=== PATIENT | male | born 1965 | race African-American/Black ===

== ENCOUNTER 2023-01-13 09:06 | Emergency (ER) | payer OTHER, SELFPAY ==
[2023-01-13 09:11] VITALS: BP 125/81; PULSE 78; RESP 16; TEMP 36.6; O2SAT 97; BMI 32.2
--- NOTE | 2023-01-13 09:16 | ED_ITS ---
HPI - Extremity Problem General Chief complaint: Extremity Problem Stated complaint: [facility] Time Seen by Provider: 01/13/23 09:15 Source: patient, RN notes reviewed and old records reviewed Mode of arrival: ambulatory History of Present Illness HPI Narrative: 57-year-old male with past medical history of chronic hip pain presenting to the ED complaining of acute on chronic right-sided hip pain x 15 years worsening today. Admits had MRI few months ago was told his right leg is shorter than his left, [facility] states not happy with his care at the [facility] and would like different referral. denies more recent injury/trauma or fall, numbness, tingling, weakness. Admits to taking anti-inflammatories without relief MD Complaint: extremity pain Related Data Previous Rx's Medication Instructions Recorded acetaminophen 500 mg tablet 500 mg PO Q6H PRN fever or pain 01/13/23 (Tylenol Extra Strength) #14 tabs cyclobenzaprine 5 mg tablet 5 mg PO Q8H PRN pain (scale score 01/13/23 7-10) 5 days #14 tabs ketorolac 10 mg tablet 10 mg PO TID PRN pain 5 days #15 01/13/23 tabs lidocaine 5 % topical patch 1 patch topical DAILY PRN pain #30 01/13/23 (Lidoderm) ea Allergies Allergy/AdvReac Type Severity Reaction Status Date / Time No Known Allergies Allergy Verified 01/13/23 09:10 [No Known Allergies*] Review of Systems Review of Systems: Constitutional: No Fever, No Chills ENT/Mouth: No Ear Pain, No Nasal Congestion, No sore throat, No Rhinorrhea, No Swallowing Difficulty Cardiovascular: No Chest Pain, No SOB Respiratory: No Cough, No Sputum, No Wheezing Gastrointestinal: No Nausea, No Vomiting, No Diarrhea, No Constipation, No Abdominal pain Genitourinary: No Dysuria, No Urinary Incontinence/retention, No Urgency, No Flank Pain Musculoskeletal: +joint pain, No Myalgias, No Joint Swelling Skin: No Skin Lesions, No rash Neuro: No Weakness, No Numbness, No Paresthesias Yes all other systems are reviewed and are negative Constitutional: Constitutional: Reports as per [facility] Past Medical History Attestation statement: The following information was validated with the patient. Source: old records reviewed Social History Social History Advance Directives: No Advance Directives Information Provided: No Physical Exam Vital Signs: Vital Signs: Last Vital Signs Temp 97.8 F 01/13/23 09:11 Pulse 78 01/13/23 09:11 Resp 16 01/13/23 09:11 BP 125/81 01/13/23 09:11 Pulse Ox 97 01/13/23 09:11 O2 Del Method Room Air 01/13/23 09:11 BMI result Body Mass Index 32.2 Const: General: cooperative, healthy appearing and no acute distress Orientation/consciousness: patient oriented x3 Limitations: no limitations HEENT: Head: Yes normal to inspection and Yes atraumatic Ears: hearing grossly normal bilaterally General nose exam: Normal external nose present Face and sinus: Yes normal facial exam Eyes: General: appearance normal, both eyes and all related structures EOM: EOMs intact bilaterally Neck: Neck: Yes normal visual inspection and Yes no meningeal signs Resp: Effort & Inspection: normal respiratory effort and no respiratory distress Cardio: Rate: regular rate Heart sounds: S1 normal heart sound present and S2 normal heart sound present Peripheral pulses: Peripheral pulses 2+ throughout GI: Inspection: Yes normal to inspection Palpation (GI): Soft to palpation, nontender, no guarding and not rigid : General: Yes no CVA tenderness Back/Spine/Pelvis: Other: No midline cervical/thoracic/lumbar spinous tenderness/step-off or deformity Back: no CVA tenderness Skin: Rashes: no rashes Wounds: no wounds Neuro: General: patient oriented x3, tone normal and no meningeal signs Cranial nerves: Yes CN's II-XII intact bilaterally Gait exam (Neuro): Normal gait present Extrem: Other: Right hip without noted deformity/erythema, warmth or rash. Diffusely tender to palpation. ROM intact with discomfort. Neurovascular intact distally. Compartments soft. General: Yes normal to inspection Medical Decision Making Medical Decision Making MDM Narrative: 57-year-old male with past medical history of chronic hip pain presenting to the ED complaining of acute on chronic right-sided hip pain x 15 years worsening today. On exam vital signs stable, NAD, nontoxic appearing, physical exam as noted above. Concern for osteoarthritis vs MSK pain/strain vs tendinopathy. Low suspicion for fracture, septic joint/arthritis, cauda equina, compartment syndrome Pain control, Orthopedic follow-up Please refer to course for remaining clinical decision making, interpretation of labs/imaging results, and discussions with consultants and/or family members. Differential Diagnosis Differential Diagnoses: The differential diagnosis associated with the presentation includes As above Radiology Impression Discussion of test interpretation with radiology: I have reviewed the radiologist's reading. External Record Review External record reviewed: Inpatient record, Office record, Outpatient record, Prior outpatient labs, Prior outpatient radiology, Primary care record and Outside ED record Tests considered The following testing was considered but not selected: As above Prescription Management I considered prescription management with: Pain Medication Chronic Conditions Patient?s care impacted by: Other Discharge Plan Discharge Clinical Impression: Chronic hip pain Patient Disposition: Home, Self-Care Instructions: Hip Pain (ED) Additional Instructions: Please with orthopedics Flexeril is a muscle relaxer, take at night as it makes you drowsy, do not drive, drink alcohol, or operate machinery while taking it Ketorolac as an anti-inflammatory / pain medication, take with food Lidoderm patches are numbing patches, apply to painful area In addition take Tylenol at home If symptoms persist or worsen, pain becomes unbearable, you developed urinary retention or incontinence, or weakness return to the ED Prescriptions: New acetaminophen [Tylenol Extra Strength] 500 mg tablet 500 mg PO Q6H PRN (Reason: fever or pain) Qty: 14 0RF ketorolac 10 mg tablet 10 mg PO TID PRN (Reason: pain) 5 Days Qty: 15 0RF lidocaine [Lidoderm] 5 % adhesive patch,medicated 1 patch topical DAILY MDD remove after 12 hours PRN (Reason: pain) Qty: 30 0RF Rx Instructions: leave on most painful area for up to 12 hrs cyclobenzaprine 5 mg tablet 5 mg PO Q8H PRN (Reason: pain (scale score 7-10)) 5 Days Qty: 14 0RF Referrals: [facility] [place] [facility] Surgeons [Provider Group]
[2023-01-13] MEDS: Ketorolac Tromethamine 30 MG/ML VIAL IM (09:35)
[2023-01-13] MEDS: Lidocaine 4 % Patch ADH..PATCH 1 PATCH TRANSDERMA (09:37)
== END 2023-01-13 09:42 | disposition home or self-care (01) ==
PROVIDERS: Emergency Provider Emergency Medicine; PCP Internal Medicine
DX: M25.551 Pain in right hip (principal); Z79.899 Other long term (current) drug therapy
CPT/HCPCS: 96372; 99283; 99284; J1885

== ENCOUNTER 2023-01-29 11:16 | Outpatient (REF) | payer OTHER, SELFPAY ==
--- NOTE | ~2023-01-29 | XR_ITS ---
EXAMINATION: XR LUMBOSACRAL SPINE CLINICAL INFORMATION: Radiculopathy, lumbar region COMPARISON: None available. TECHNIQUE: Three views of the lumbosacral spine. FINDINGS: No acute lumbar compression fractures seen. Anterolisthesis noted L4-5. Slight degenerative disc space narrowing seen eccentrically at L4-5. There are minimal endplate spondylitic changes. Multilevel facet arthrosis noted. Degenerative changes noted at the SI joints. XR/XR lumbar spine 2-3V IMPRESSION: 1. No acute compression fracture. Anterolisthesis L4-5. 2. Slight degenerative disc space narrowing L4-5. 3. Facet arthrosis.
== END 2023-01-29 11:17 | disposition home or self-care (01) ==
LOC: HO.HOSX 11:16
PROVIDERS: PCP Internal Medicine; Visit Provider Physical Medicine & Rehabilitation
DX: M70.61 Trochanteric bursitis, right hip (principal); M54.16 Radiculopathy, lumbar region; Z79.899 Other long term (current) drug therapy
CPT/HCPCS: 72100

== ENCOUNTER 2023-01-29 11:16 | Outpatient (AMB) | payer OTHER, SELFPAY ==
--- NOTE | 2023-01-29 11:17 | A.OFFVIS_ITS ---
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 Patient reports ongoing pain for 20 years and its been getting worse over time. He states that lidocaine patches are not relieving his pain. Patient states that his pain is worse at night when laying down. His pain is near the glutes area and it moves down to behind his knee. 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 No fracture that he knew about. Did 28 jumps after. Denies any other injury. Gradually worsening now. 2 months ago [facility], told to have right leg shorter but was not told any other results; 2 years told to have bone deterioration and bruising.N Right lateral hip pain, wears 3 lidoderms patches, going down to lateral thigh. Some pain on right calf. No groin. Some back pain. He reports numbness on both calves, chronic, right worse left. No numbness on toes. Right knee buckling, leg gives out. No bladder/bowel issues. Treatment done so far: NSAIDs - ibuprofen therapy - never went injection - none yet surgery - none [facility] Medical History (Updated 01/29/23 @ 11:56 by Sybil Boss MD) Trochanteric bursitis of right hip Social History (Updated 01/29/23 @ 11:24 by Coral Peterson) Alcohol intake: current Patient Tobacco Use Status: Current everyday Tobacco user Review of Systems Const All systems reviewed & are unremarkable except as noted in HPI and below Physical Exam Vital Signs: BMI result Body Mass Index 32.2 Constitutional: Patient appears to be in no acute distress, well nourished and well developed. Patient was appropriately conversant and oriented. Good historian. MSK: No specific abnormalities found on inspection of the spine and all extremities. No pain with palpation over the lumbar area. No tenderness in SI joint. Tender on right GT and piriformis. Mildly tender along the ITB band. Lumbar ROM was full. Straight-leg raising test negative. FABERE test positive right hip. No footdrop. No calf tenderness. Strength is 5/5 in all muscle groups tested. No increased tone noted. Neurological: Neurologic examination of the upper and lower extremities was nonfocal with intact sensation, muscle stretch reflexes and without focal motor deficits . Ocampo?s negative bilaterally. Babinski was down going bilaterally. Clonus was negative. Gait is antalgic without loss of balance. Results Reviewed Results Reviewed: Lumbar x-ray done in the office. I independently reviewed the results of the following: Decreased disc space between L4-5 and L5-S1, possible mild spondylolisthesis L4- 5. MRI right knee 10/13/2022 report obtained from [facility]: Focal inner margin fraying of the medial meniscal body, minimal inner margin fraying of the lateral meniscal body. Mucoid degeneration of the ACL without measurable tear. Possible grade 1 sprain/partial tear of the MCL. Distal quadriceps tendinosis with partial tearing. Mild patellofemoral and medial compartment osteoarthritis. Possible mild strain of medial gastrocnemius muscle. I reviewed records from the following: Recent ER visit for right hip, given ketorolac injection, NSAIDs and Flexeril and Lidoderm patch Assessment & Plan Assessment & Plan (1) Trochanteric bursitis of right hip: Code(s): M70.61 - Trochanteric bursitis, right hip Plan: Pain is in the lateral hip, no groin pain, which is suggestive of trochanteric bursitis. There is some tenderness over iliotibial band. (2) Lumbar radiculitis: Code(s): M54.16 - Radiculopathy, lumbar region Plan: There is also concern for right-sided lumbar radiculopathy given history of being in the /injuries and complaints of numbness and calf. Plan Right lateral hip pain could be trochanteric bursitis. We could trial steroid injection. We will schedule for next week. We will look for recent imaging done at the [facility] for right hip. Concern for lumbar radiculitis. X-ray done, see above. We may at some point need a lumbar MRI if continues to have leg/calf numbness. Continue with Lidoderm patches. Assessment and plan discussed with patent, and patient was agreeable. All questions were answered thoroughly. Orders: Orders XR lumbar spine 2-3V Today M54.16 - Radiculopathy, lumbar region Coding Level of Care Code New Pt Level 4 (40544) Diagnoses Trochanteric bursitis of right hip M70.61 Lumbar radiculitis M54.16
[2023-01-29 11:24] VITALS: BMI 32.2
== END 2023-01-29 12:15 | disposition home or self-care (01) ==
PROVIDERS: PCP Internal Medicine; Visit Provider Physical Medicine & Rehabilitation
DX: M70.61 Trochanteric bursitis, right hip (principal); M54.16 Radiculopathy, lumbar region
CPT/HCPCS: 99204

== ENCOUNTER 2023-02-05 09:05 | Outpatient (AMB) | payer OTHER, SELFPAY ==
--- NOTE | 2023-02-05 09:12 | MHC.OFFVIS ---
Intake Intake Visit Reasons: ov- right Chronic hip pain injection Intake Note: This is a 57 year old male who presents for chronic right hip pain. He reports injury while he was in the in the . He has not had any surgical intervention for his hip. He has never had any injections. He does not take any OTC meds, and states ice and heat does not help. Allergies No Known Allergies [No Known Allergies*] Allergy (Verified 02/05/23 09:16) Medication List - Last Reconciled 02/05/23 by Veronica Chris RN acetaminophen (Tylenol Extra Strength) 500 mg PO Q6H PRN cyclobenzaprine 5 mg PO Q8H PRN 5 days lidocaine 5% (Lidoderm) 1 patch topical DAILY PRN MDD remove after 12 hours naproxen 500 mg PO BID PRN 10 days PFSH Medical History (Updated 01/29/23 @ 11:56 by Sybil Boss MD) Trochanteric bursitis of right hip Social History (Updated 01/29/23 @ 11:24 by Coral Peterson) Alcohol intake: current Patient Tobacco Use Status: Current everyday Tobacco user Office Procedures Joint Injection/Drain Joint Injection/Drain Details: Right greater trochanteric injection Consent obtained. Patient lies on unaffected side with knees flexed. Tender area over the greater trochanter is identified and marked. Area is cleansed with betadine solution. Using a [27] gauge needle, [3 ml] of [2 %] lidocaine is injected, with the needle perpendicular to center of tender area. Then, using a spinal needle, [40 mg] Kenalog is injected perpendicularly at center of tender area and slightly touching bone of greater trochanter. Patient tolerated procedure well without complications. Injected: 40 mg of, Kenalog, with 3 mL of and other (2% lidocaine) Coding 02947 - Large joint Procedure code (CPT) selection complete Results Reviewed Results Reviewed: 02/05/23 09:21 Lidocaine HCl 2 % MPF [Xylocaine 2 % MPF] 5 ml .ROUTE .STK-MED ONE Triamcinolone Acetonide [Kenalog-40] 40 mg .ROUTE .STK-MED ONE Assessment & Plan Assessment & Plan (1) Trochanteric bursitis of right hip: Code(s): M70.61 - Trochanteric bursitis, right hip (2) Lumbar radiculitis: Code(s): M54.16 - Radiculopathy, lumbar region Plan Hopefully right hip pain will improve with this injection. [facility] Discussed that lumbar x-ray showed spondylosis. If back pain/hip pain does not get better, we would need to further evaluate lumbar spine. Follow-up in 3 months. Assessment and plan discussed with patient, and patient was agreeable. All questions were answered thoroughly. Sybil Boss MD, AFSHAN Board Certified, [place] [employer] and [employer] (ABPMR) Board Certified, [place] [employer] Electro[employer] (ABEM) Orders: Orders AMB Joint Injection/Aspiration Today M70.61 - Trochanteric bursitis, right hip Coding Level of Care Code Procedure Only Diagnoses Trochanteric bursitis of right hip M70.61 Lumbar radiculitis M54.16 CPT Codes Coding - 24788 Large joint: 07894 - Large joint ([id number])
== END 2023-02-05 09:39 | disposition home or self-care (01) ==
PROVIDERS: PCP Internal Medicine; Visit Provider Physical Medicine & Rehabilitation
DX: M70.61 Trochanteric bursitis, right hip (principal); M54.16 Radiculopathy, lumbar region
CPT/HCPCS: 20610

== ENCOUNTER → 2023-02-05 09:05 | Outpatient (BNVA) | payer OTHER, SELFPAY | PROVIDERS: PCP Internal Medicine; Visit Provider Physical Medicine & Rehabilitation | DX: M70.61 Trochanteric bursitis, right hip (principal); M54.16 Radiculopathy, lumbar region | CPT/HCPCS: 20610; J3301 ==

== ENCOUNTER 2023-10-13 08:36 | Emergency (ER) | payer OTHER, SELFPAY ==
[2023-10-13] VITALS (14 sets, daily range): BP systolic 140–189; BP diastolic 81–101; PULSE 57–73; RESP 17–20; TEMP 36.3–37.2; O2SAT 96–100; BMI 31.1
--- NOTE | ~2023-10-13 | XR_ITS ---
EXAMINATION: XR CHEST CLINICAL INFORMATION: Chest pain COMPARISON: None available. TECHNIQUE: Frontal view of the chest was obtained. FINDINGS: No significant abnormality is noted involving the heart, lungs, mediastinum, bony thorax or soft tissues. XR/XR chest 1V IMPRESSION: Unremarkable examination.
--- NOTE | 2023-10-13 08:37 | ECG_ITS ---
Test Reason : chest pain Blood Pressure : / mmHG Vent. Rate : 065 BPM Atrial Rate : 065 BPM P-R Int : 144 ms QRS Dur : 092 ms QT Int : 420 ms P-R-T Axes : 071 066 057 degrees QTc Int : 436 ms Normal sinus rhythm Possible Left atrial enlargement Minimal voltage criteria for LVH, may be normal variant ( Sokolow-Merritt ) Nonspecific T wave abnormality Abnormal ECG No previous ECGs available Referred By: Generic ED Physician Electronically Signed By:Anuel Bonds
[2023-10-13 08:51] LABS: MANUAL DIFF FLAG NO
[2023-10-13 08:52] LABS: Basophils Absolute Auto 0.1 X10*3/uL (0.0-0.2); Basophils Percent Auto 0.5 % (0-2); Eosinophils Percent Auto 0.1 % (0-4); Hematocrit 46.3 % (42.0-52.0); Hemoglobin 15.8 g/dl (14.0-18.0); Imm Gran Abs Auto 0.04 X10*3/uL (0.00-0.03); Imm Gran Pct Auto 0.4 % (0.0-0.4); Lymphocytes Absolute Auto 1.4 X10*3/uL (1.2-4.9); Lymphocytes Percent Auto 13.2 % (20-40); Mean Corpuscular HGB Conc 34.1 g/dl (31.0-36.0); Mean Corpuscular Hemoglobin 28.5 pg (27.0-33.0); Mean Corpuscular Volume 83.6 fL (80.0-98.0); Mean Platelet Volume 9.5 fL (9.4-12.4); Monocytes Absolute Auto 0.5 X10*3/uL (0.1-1.2); Monocytes Percent Auto 4.8 % (2-11); Neutrophils Absolute Auto 8.4 x10*3/uL (2.0-8.3); Platelet Count 224 X10*3/uL (160-400); Red Blood Count 5.54 X10*6/uL (4.60-5.80); Red Cell Distribution Width 13.4 % (11.0-16.0); White Blood Count 10.4 X10*3/uL (4.8-10.8)
[2023-10-13 09:05] LABS: Alanine Aminotransferase 28 U/L (0-40); Albumin Level 4.2 g/dL (3.5-5.0); Alkaline Phosphatase 64 U/L (39-117); Anion Gap 13 (12-20); Aspartate Amino Transferase 26 U/L (5-37); Bilirubin Total 0.7 mg/dL (0.0-1.0); Blood Urea Nitrogen 15 mg/dL (9-16); Calcium 9.8 mg/dL (8.4-10.2); Carbon Dioxide 25 mmol/L (22-29); Chloride 106 mmol/L (96-108); Estimated Glomerular Filt Rate > 60; Glucose Random 136 mg/dL (60-115); Sodium 140 mmol/L (135-145); Total Protein 7.3 g/dL (6.5-8.0)
[2023-10-13 09:14] LABS: Troponin-I High Sensitivity 100.9 ng/L (<3.5-35.0)
--- NOTE | 2023-10-13 09:15 | ED_ITS ---
HPI - Chest Pain General Chief Complaint: Chest Pain Stated Complaint: chest pain Time Seen by Provider: 10/13/23 09:15 Source: patient Mode of arrival: ambulatory Limitations: no limitations History of Present Illness ED Provider: TIMMY MCINTOSH narrative: 58 yo male with no PMH but he does not go to the PCP regularly he has used cocaine in the past but denies recent use - he admits to smoking THC with someone last night and the THC was off the streets he felt funny afterwards. He woke up at 5am drenched in sweat with diffuse chest pressure, nausea and dyspnea. He is feeling better now but still has pressure. He took 4 baby aspirin prior to arrival. He has no known heart disease. MD complaint: chest pain Onset (ago): hour(s) (5am today) Timing of current episode: constant Prior episodes: No Onset: during rest Pain location: substernal Pain radiation: none Severity: moderate Quality: other (pressure) Relieving factors: nothing Exacerbating factors: movement Context: other (possibly associated with THC use) Associated symptoms: nausea and dyspnea Treatment prior to arrival: aspirin (324mg) Related Data Previous Rx's ?Medication ?Instructions ?Recorded acetaminophen 500 mg tablet 500 mg PO Q6H PRN fever or pain 01/13/23 (Tylenol Extra Strength) #14 tabs cyclobenzaprine 5 mg tablet 5 mg PO Q8H PRN pain (scale score 01/13/23 7-10) 5 days #14 tabs lidocaine 5 % topical patch 1 patch topical DAILY PRN pain #30 01/13/23 (Lidoderm) ea naproxen 500 mg tablet 500 mg PO BID PRN pain 10 days #20 01/13/23 tabs Allergies Allergy/AdvReac Type Severity Reaction Status Date / Time No Known Allergies Allergy Verified 10/13/23 09:11 [No Known Allergies*] Review of Systems 2 Review of Systems: Constitutional : No Weight loss, No Fever, No Chills ENT/Mouth : No sore throat, No Rhinorrhea Eyes: No Eye Pain, No Swelling Cardiovascular : pos Chest Pain, pos SOB, no Dyspnea on Exertion, No Orthopnea, No Edema, No Palpitations Respiratory : No Cough, No Sputum Gastrointestinal : pos Nausea, No Vomiting, No Diarrhea, No abdominal Pain, No Hematochezia, No Melena Genitourinary : No Dysuria, No Urinary Frequency Musculoskeletal : No joint pain, No Myalgias, No Joint Swelling Skin : No Skin Lesions, No rash Neuro : No Weakness, No Numbness, No Dizziness, No Headache Psych : No Anxiety/Panic, No Depression All other systems reviewed and are negative [facility] Past Medical History Attestation statement: The following information was validated with the patient. Source: old records reviewed Medical History Trochanteric bursitis of right hip Social History Social History Alcohol intake: current Patient Tobacco Use Status: Current everyday Tobacco user Smoked in Last 30 Days: Yes Use of substances other than those prescribed or required for medical reasons: Yes Substance Use Type: Crack/Cocaine and Marijuana Advance Directives: No Advance Directives Information Provided: No Physical Exam 2 Vital Signs: Vital Signs: Last Vital Signs Temp 97.7 F 10/13/23 11:46 Pulse 60 10/13/23 13:36 Resp 17 10/13/23 13:36 BP 176/88 H 10/13/23 13:50 Pulse Ox 99 10/13/23 13:36 O2 Del Method Room Air 10/13/23 13:36 BMI result Body Mass Index 31.1 Appearance: Alert. Oriented X3. No acute distress. anxious Eyes: Pupils equal, round and reactive to light. ENT: Pharynx normal. Neck: Normal inspection. Neck supple. CVS: Normal heart rate and rhythm. Pulses normal. Respiratory: No respiratory distress. Breath sounds normal. Abdomen: Soft and nontender. Skin: Skin warm and dry. Normal skin color. Normal skin turgor. Extremities: No lower extremity edema. No calf ttp Neuro: Oriented X 3. No motor deficit. No sensory deficit. Course Course Course Narrative: some relief with initial nitro BP coming down will repeat Reevaluation(s) Reevaluation #1: sleeping pain resolved after 2nd nitro Reevaluation #2: BP 170s, repeat trop markedly higher discussing with [place] - aspirin Reevaluation #3: to go inpatient at [facility] dr. storey completed transfer Medications Administered Generic Name Dose Route Start Last Admin Trade Name Freq PRN Reason Stop Dose Admin Heparin Sodium/Sodium Chloride 25,000 unit in 250 mls @ 0 mls/hr 10/13/23 13:00 10/13/23 14:38 Heparin Sodium,Porcine/1/2ns IVCONT 0 units/kg/hr .Q0M SAMANTHA 0 mls/hr Titration Protocol Per Protocol Discontinued Medications Generic Name Dose Route Start Last Admin Trade Name Siobhan PRN Reason Stop Dose Admin Amlodipine Besylate 5 mg 10/13/23 12:49 10/13/23 13:50 Amlodipine Besylate 5 Mg Tablet PO 10/13/23 12:50 5 mg ONCE ONE Administration Protocol Atorvastatin Calcium 80 mg 10/13/23 12:09 10/13/23 12:22 Atorvastatin Calcium 80 Mg Tablet PO 10/13/23 12:10 80 mg ONCE ONE Administration Heparin Sodium (Porcine) 4,000 unit 10/13/23 12:48 10/13/23 13:52 Heparin Sodium,Porcine 5,000 Unit/Ml Vial IVPUSH 10/13/23 12:49 4,000 unit ONCE ONE Administration Lorazepam 1 mg 10/13/23 09:21 10/13/23 09:25 Lorazepam 1 Mg Tablet PO 10/13/23 09:22 1 mg ONCE ONE Administration Nitroglycerin 0.4 mg 10/13/23 09:21 10/13/23 09:26 Nitroglycerin 0.4 Mg Tab.Subl SUBLINGUAL 10/13/23 09:22 0.4 mg ONCE ONE Administration Nitroglycerin 0.4 mg 10/13/23 09:40 10/13/23 09:47 Nitroglycerin 0.4 Mg Tab.Subl SUBLINGUAL 10/13/23 09:41 0.4 mg ONCE ONE Administration Medical Decision Making Medical Decision Making MDM Narrative: 58 yo male with no known PMH here after using THC from the street feeling weird then woke up with chest pressure now with HTN and elevated troponin at this time pulses intact doubt dissection - seems related to substance abuse now admitting that he has a high suspicion the THC had cocaine in it he already took aspirin at this time ativan, nitro and repeat troponin, CXR ordered. I am not suspect VTE in this situation as it was directly related to substance abuse. Differential Diagnosis Differential Diagnoses: The differential diagnosis associated with the presentation includes ACS, coronary vasospasm, HTN urgency Admission/Observation Consideration of admission/observation: Escalation of care including admission/observation considered Dr. Storey to tranfer to [facility] will work on transfer no contraindications to heparin pending room at [facility] Consult Healthcare Provider Management of the patient was discussed with: [employer] message sent to Dr. Storey at 924am - recheck troponins is aware Lab Data MDM Lab Attestation statement: I reviewed the patient's lab results. 10/13/23 08:46 10/13/23 08:46 Labs: Lab Results 10/13/23 10/13/23 10/13/23 Range/Units 08:46 09:32 11:39 WBC 10.4 (4.8-10.8) X10*3/uL RBC 5.54 (4.60-5.80) X10*6/uL Hgb 15.8 (14.0-18.0) g/dl Hct 46.3 (42.0-52.0) % MCV 83.6 (80.0-98.0) fL MCH 28.5 (27.0-33.0) pg MCHC 34.1 (31.0-36.0) g/dl RDW 13.4 (11.0-16.0) % Plt Count 224 (160-400) X10*3/uL MPV 9.5 (9.4-12.4) fL Immature Gran % (Auto) 0.4 (0.0-0.4) % Neut % (Auto) 81.0 H (45-73) % Lymph % (Auto) 13.2 L (20-40) % [place] % (Auto) 4.8 (2-11) % Eos % (Auto) 0.1 (0-4) % Baso % (Auto) 0.5 (0-2) % Lymph # (Auto) 1.4 (1.2-4.9) X10*3/uL [place] # (Auto) 0.5 (0.1-1.2) X10*3/uL Eos # (Auto) 0.0 (0.0-0.4) X10*3/uL Baso # (Auto) 0.1 (0.0-0.2) X10*3/uL Abs Immat Gran (auto) 0.04 H (0.00-0.03) X10*3/uL Absolute Neuts (auto) 8.4 H (2.0-8.3) x10*3/uL Absolute Nucleated RBC 0.000 (0.0-0.012) X10*3/uL Nucleated RBC % (auto) 0.0 (0.0-0.2) /100WBC PT 10.8 L (11.1-13.3) SEC INR 0.9 (0.9-1.1) aPTT Heparin Protocol (53-77.9) SEC Sodium 140 (135-145) mmol/L Potassium 4.0 (3.3-5.1) mmol/L Chloride 106 (96-108) mmol/L Carbon Dioxide 25 (22-29) mmol/L Anion Gap 13 (12-20) BUN 15 (9-16) mg/dL Creatinine 1.06 (0.5-1.4) mg/dL Estim Creat Clear Calc TNP Estimated GFR > 60 Random Glucose 136 H (60-115) mg/dL Calcium 9.8 (8.4-10.2) mg/dL Total Bilirubin 0.7 (0.0-1.0) mg/dL AST 26 (5-37) U/L ALT 28 (0-40) U/L Alkaline Phosphatase 64 (39-117) U/L Total Creatine Kinase 311 H (38-174) U/L Troponin I High Sens 100.9 H* 155.9 H* D 559.2 H* D (<3.5-35.0) ng/L Total Protein 7.3 (6.5-8.0) g/dL Albumin 4.2 (3.5-5.0) g/dL Urine Opiates Screen (Not Detect) Ur Buprenorphine Scrn (Not Detect) ng/mL Ur Oxycodone Screen (Not Detect) ng/mL Urine Methadone Screen (Not Detect) ng/mL Urine Fentanyl Screen (Not Detect) Ur Barbiturates Screen (Not Detect) Ur Phencyclidine Scrn (Not Detect) Ur Amphetamines Screen (Not Detect) U Benzodiazepines Scrn (Not Detect) Urine Cocaine Screen (Not Detect) U Marijuana (THC) Screen (Not Detect) 10/13/23 10/13/23 Range/Units 11:55 14:03 WBC (4.8-10.8) X10*3/uL RBC (4.60-5.80) X10*6/uL Hgb (14.0-18.0) g/dl Hct (42.0-52.0) % MCV (80.0-98.0) fL MCH (27.0-33.0) pg MCHC (31.0-36.0) g/dl RDW (11.0-16.0) % Plt Count (160-400) X10*3/uL MPV (9.4-12.4) fL Immature Gran % (Auto) (0.0-0.4) % Neut % (Auto) (45-73) % Lymph % (Auto) (20-40) % [place] % (Auto) (2-11) % Eos % (Auto) (0-4) % Baso % (Auto) (0-2) % Lymph # (Auto) (1.2-4.9) X10*3/uL [place] # (Auto) (0.1-1.2) X10*3/uL Eos # (Auto) (0.0-0.4) X10*3/uL Baso # (Auto) (0.0-0.2) X10*3/uL Abs Immat Gran (auto) (0.00-0.03) X10*3/uL Absolute Neuts (auto) (2.0-8.3) x10*3/uL Absolute Nucleated RBC (0.0-0.012) X10*3/uL Nucleated RBC % (auto) (0.0-0.2) /100WBC PT (11.1-13.3) SEC INR (0.9-1.1) aPTT Heparin Protocol 189.6 H* (53-77.9) SEC Sodium (135-145) mmol/L Potassium (3.3-5.1) mmol/L Chloride (96-108) mmol/L Carbon Dioxide (22-29) mmol/L Anion Gap (12-20) BUN (9-16) mg/dL Creatinine (0.5-1.4) mg/dL Estim Creat Clear Calc Estimated GFR Random Glucose (60-115) mg/dL Calcium (8.4-10.2) mg/dL Total Bilirubin (0.0-1.0) mg/dL AST (5-37) U/L ALT (0-40) U/L Alkaline Phosphatase (39-117) U/L Total Creatine Kinase (38-174) U/L Troponin I High Sens (<3.5-35.0) ng/L Total Protein (6.5-8.0) g/dL Albumin (3.5-5.0) g/dL Urine Opiates Screen Not Detected (Not Detect) Ur Buprenorphine Scrn Not Detected (Not Detect) ng/mL Ur Oxycodone Screen Not Detected (Not Detect) ng/mL Urine Methadone Screen Not Detected (Not Detect) ng/mL Urine Fentanyl Screen Not Detected (Not Detect) Ur Barbiturates Screen Not Detected (Not Detect) Ur Phencyclidine Scrn Not Detected (Not Detect) Ur Amphetamines Screen Not Detected (Not Detect) U Benzodiazepines Scrn Not Detected (Not Detect) Urine Cocaine Screen POSITIVE H (Not Detect) U Marijuana (THC) Screen POSITIVE H (Not Detect) Independent Interpretation I performed an independent interpretation of an: EKG and Plain X-Ray (normal) Interpretation: Rate: 65 Rhythm: NSR [place]: normal , LVH Normal P waves. Normal VICKY. Normal QRS complex. ST T wave : no HATTIE, earlly repolarization V3-V4 no reciprocal changes qTC: 436 prior studies: no prior The study has been interpreted contemporaneously by me. EKG #2 Rate: 61 Rhythm: NSR [place]: normal LVH Normal P waves. Normal VICKY. Normal QRS complex. ST T wave : early repolarization V3-V4, no HATTIE qTC: 426 prior studies: LVH with strain and suspect early repolarization The study has been interpreted contemporaneously by me. . Radiology Impression Discussion of test interpretation with radiology: I have reviewed the radiologist's reading. External Record Review External record reviewed: Inpatient record Critical Care Time Critical Care Time Critical Care Time: Yes Total Critical Care Time: 60 Attestation: repeat labs, medical consult, repeat nitro for pain I attest to this time spent taking care of the patient Discharge Plan Discharge Clinical Impression: Cocaine use, Non-ST elevation NE (NSTEMI) Chest pain Qualifiers: Chest pain type: precordial pain Qualified Code(s): R07.2 - Precordial pain Patient Disposition: Xfer [facility] Hospital Transfer Details: [facility] Prescriptions: No Action acetaminophen [Tylenol Extra Strength] 500 mg tablet 500 mg PO Q6H PRN (Reason: fever or pain) Qty: 14 0RF lidocaine [Lidoderm] 5 % adhesive patch,medicated 1 patch topical DAILY MDD remove after 12 hours PRN (Reason: pain) Qty: 30 0RF Rx Instructions: leave on most painful area for up to 12 hrs cyclobenzaprine 5 mg tablet 5 mg PO Q8H PRN (Reason: pain (scale score 7-10)) 5 Days Qty: 14 0RF naproxen 500 mg tablet 500 mg PO BID PRN (Reason: pain) 10 Days Qty: 20 0RF Print Language: Persian
[2023-10-13] MEDS: LORazepam 1 MG TABLET PO (09:25)
[2023-10-13] MEDS: Nitroglycerin 0.4 MG TAB.SUBL SUBLINGUAL ×2 (09:26→09:47)
--- NOTE | 2023-10-13 09:35 | PC.NURSE ---
Pt reports chest pain since 5 AM this morning, substernal pressure and sharp pains, 12/02. Reports he smoked marijuana last, not from the dispensary like he normally gets it. Reports pain woke him up this morning. Denies SOB, N/V/D, fever, ABD pain. Alert and oriented, breathing even and unlabored, skin warm and dry. Pt noted to be uncomfortable. BP hypertensive. On bedside color television console monitor, NSR.
[2023-10-13 09:46] LABS: INTERNATIONAL NORM RATIO 0.9 (0.9-1.1); Prothrombin Time 10.8 SEC (11.1-13.3)
[2023-10-13 10:01] LABS: Troponin-I High Sensitivity 155.9 ng/L (<3.5-35.0)
--- NOTE | 2023-10-13 10:49 | PC.NURSE ---
Pt resting at this time, appears comfortable. Reports pain has resolved with medications.
[2023-10-13 12:08] LABS: Troponin-I High Sensitivity 559.2 ng/L (<3.5-35.0)
[2023-10-13 12:18] LABS: Amphetamine Screen Urine Not Detected (Not Detect); Barbiturates, Urine Not Detected (Not Detect); Benzodiazepines Screen Urine Not Detected (Not Detect); Buprenorphine Scr Not Detected (Not Detect); Cannabinoid Screen Urine POSITIVE (Not Detect); Cocaine Screen Urine POSITIVE (Not Detect); Fentanyl, urine Not Detected (Not Detect); Methadone Screen, Urine Not Detected (Not Detect); Opiate Screen Urine Not Detected (Not Detect); Oxycodone Screen Urine Not Detected (Not Detect); Phencyclidine Screen Urine Not Detected (Not Detect)
[2023-10-13] MEDS: Atorvastatin Calcium 80 MG TABLET PO (12:22)
--- NOTE | 2023-10-13 13:02 | P.CONCA_ITS ---
History of Present Illness History of Present Illness Date of Service: 10/13/23 Requesting physician: Aixa Badillo Chief complaint: chest pain, NSTEMI Narrative: 58-year-old gentleman with background history of cocaine use presenting for chest discomfort, sweating and positive troponin. He said he used marijuana last night in a bar which potentially was laced with cocaine. He said he has not used for a year and has not been actively using cocaine but apparently used some marijuana from some friends which was laced with cocaine. Said he did not have any symptoms after using marijuana but in the morning he started having sweating and chest tightness and these symptoms lasted for 2 hours. He came to the emergency department and EKG showed early repolarization and ST elevations. He was given nitroglycerin which improved his symptoms followed by some benzodiazepines. He is currently symptom free. His high sensitive troponin levels were 100 and 500. Blood pressure is elevated. [facility] Past Medical History Medical History Trochanteric bursitis of right hip Social History Social History Alcohol intake: current Patient Tobacco Use Status: Current everyday Tobacco user Smoked in Last 30 Days: Yes Use of substances other than those prescribed or required for medical reasons: Yes Substance Use Type: Crack/Cocaine and Marijuana Advance Directives: No Advance Directives Information Provided: No Meds Allergies Allergy/AdvReac Type Severity Reaction Status Date / Time No Known Allergies Allergy Verified 10/13/23 09:11 [No Known Allergies*] Active Medications: Current Medications Heparin Sodium (Porcine) (Heparin Sodium,Porcine 5,000 Unit/Ml Vial) 4,300 unit 40 unit/kg (4300 unit) IVPUSH PROTOCOL BOLUS PRN; Protocol PRN Reason: 40 unit/kg - Heparin Protocol Heparin Sodium (Porcine) (Heparin Sodium,Porcine 5,000 Unit/Ml Vial) 8,600 unit 80 unit/kg (8600 unit) IVPUSH PROTOCOL BOLUS PRN; Protocol PRN Reason: 80 unit/kg - Heparin Protocol Heparin Sodium/Sodium Chloride (Heparin Sodium,Porcine/1/2ns) 25,000 unit in 250 mls @ 0 mls/hr IVCONT .Q0M SAMANTHA; Protocol Physical Exam 2 Vital Signs: Vital Signs: Last Vital Signs Temp 97.7 F 10/13/23 11:46 Pulse 71 05/20/24 11:46 Resp 17 10/13/23 11:46 BP 170/94 H 10/13/23 11:46 Pulse Ox 99 10/13/23 11:46 O2 Del Method Room Air 10/13/23 11:46 BMI result Body Mass Index 31.1 GENERAL APPEARANCE: in no acute distress, pleasant. NECK: no carotid bruit, no jugular venous distention. SKIN: no suspicious lesions, warm and dry. HEART: no murmurs, regular rate and rhythm. LUNGS: clear to auscultation bilaterally. ABDOMEN: soft, nontender. EXTREMITIES: no edema. PERIPHERAL PULSES: equal. NEUROLOGIC: No gross deficits, AAO X 3 Objective Labs and Meds 10/13/23 08:46 10/13/23 08:46 Lab results: Laboratory Results - last 24 hr 10/13/23 10/13/23 10/13/23 08:46 09:32 11:39 WBC 10.4 RBC 5.54 Hgb 15.8 Hct 46.3 MCV 83.6 MCH 28.5 MCHC 34.1 RDW 13.4 Plt Count 224 MPV 9.5 Immature Gran % (Auto) 0.4 Neut % (Auto) 81.0 H Lymph % (Auto) 13.2 L [place] % (Auto) 4.8 Eos % (Auto) 0.1 Baso % (Auto) 0.5 Lymph # (Auto) 1.4 [place] # (Auto) 0.5 Eos # (Auto) 0.0 Baso # (Auto) 0.1 Abs Immat Gran (auto) 0.04 H Absolute Neuts (auto) 8.4 H Absolute Nucleated RBC 0.000 Nucleated RBC % (auto) 0.0 PT 10.8 L INR 0.9 Sodium 140 Potassium 4.0 Chloride 106 Carbon Dioxide 25 Anion Gap 13 BUN 15 Creatinine 1.06 Estim Creat Clear Calc TNP Estimated GFR > 60 Random Glucose 136 H Calcium 9.8 Total Bilirubin 0.7 AST 26 ALT 28 Alkaline Phosphatase 64 Total Creatine Kinase 311 H Troponin I High Sens 100.9 H* 155.9 H* D 559.2 H* D Total Protein 7.3 Albumin 4.2 Urine Opiates Screen Ur Buprenorphine Scrn Ur Oxycodone Screen Urine Methadone Screen Urine Fentanyl Screen Ur Barbiturates Screen Ur Phencyclidine Scrn Ur Amphetamines Screen U Benzodiazepines Scrn Urine Cocaine Screen U Marijuana (THC) Screen 10/13/23 11:55 WBC RBC Hgb Hct MCV MCH MCHC RDW Plt Count MPV Immature Gran % (Auto) Neut % (Auto) Lymph % (Auto) [place] % (Auto) Eos % (Auto) Baso % (Auto) Lymph # (Auto) [place] # (Auto) Eos # (Auto) Baso # (Auto) Abs Immat Gran (auto) Absolute Neuts (auto) Absolute Nucleated RBC Nucleated RBC % (auto) PT INR Sodium Potassium Chloride Carbon Dioxide Anion Gap BUN Creatinine Estim Creat Clear Calc Estimated GFR Random Glucose Calcium Total Bilirubin AST ALT Alkaline Phosphatase Total Creatine Kinase Troponin I High Sens Total Protein Albumin Urine Opiates Screen Not Detected Ur Buprenorphine Scrn Not Detected Ur Oxycodone Screen Not Detected Urine Methadone Screen Not Detected Urine Fentanyl Screen Not Detected Ur Barbiturates Screen Not Detected Ur Phencyclidine Scrn Not Detected Ur Amphetamines Screen Not Detected U Benzodiazepines Scrn Not Detected Urine Cocaine Screen POSITIVE H U Marijuana (THC) Screen POSITIVE H Imaging Radiologist's impression: Impressions Chest X-Ray 10/13/23 09:46 IMPRESSION: Unremarkable examination. Assessment and Plan (1) Non-ST elevation [place] (NSTEMI): Status: Acute Plan [age] year gentleman presenting for chest discomfort and NSTEMI in the setting of substance use. Blood pressure is elevated. Add amlodipine 5 mg daily. Aspirin 325 mg load followed by 81 mg daily. Heparin drip. Atorvastatin 80 mg p.o. daily. I have discussed with him about cardiac catheterization and he is agreeable. We will transfer to [facility]. Thank you for allowing me to participate in the care of your patient. Please feel free to contact me if you have any questions. Procedures Date of Service Date of Service: 10/13/23
[2023-10-13] MEDS: amLODIPine Besylate 5 MG TABLET PO (13:50)
[2023-10-13] MEDS: Heparin Sodium,Porcine 5,000 UNIT/ML VIAL 4000 UNIT IVPUSH (13:52)
[2023-10-13] MEDS: Heparin Sodium,Porcine/1/2NS 25,000 UNIT/250 ML IV.SOLN 10 UNIT IVCONT (14:10)
--- NOTE | 2023-10-13 14:12 | PC.NURSE ---
approved heparin drip infusion to begin prior to receiving results of PTT. Entered results of PTT as 0 (in the mandatory field)
--- NOTE | 2023-10-13 14:24 | PC.NURSE ---
Addendum entered by Valerie Ly 10/13/23 15:17: Heparin bolus had already been administered after baseline PTT was drawn and prior to lab calling recollect, with MD approval. PTT redrawn by tech prior to heparin drip being started but after bolus was given. Critical high PTT called by lab. aware of situation, redraw for PTT at 1538. No other changes to be made. Pt remains stable, denies pain. Original Note: Delay in heparin drip due to having to redraw PTT
[2023-10-13 14:36] LABS: PTT Heparin Drip 189.6 SEC (53-77.9)
[2023-10-13 15:55] LABS: PTT Heparin Drip 43.1 SEC (53-77.9)
--- NOTE | 2023-10-13 16:00 | PC.NURSE ---
PTT came back low 43.1. Heparin drip restarted per JUL, two RNs verifying. Pt continues to deny CP or SOB.
--- NOTE | 2023-10-13 19:19 | PC.NURSE ---
pt resting comfortably. heparin infusing per mar. pt denies cp/sob/n/v/d. pt requesting food; awaiting confirmation from provider to allow pt to eat. pt educated on plan of care denies questions/concerns at this time. nsr on monitor at 60 bpm. call eaton within reach.
--- NOTE | 2023-10-13 20:08 | PC.NURSE ---
Dr. Masterson made aware of high bp. pt denies WILLSON/cp/sob/n/v/d.
[2023-10-13] MEDS: Nitroglycerin 2 % Oint 1 GM Packet 1 INCH TRANSDERMA (21:05)
[2023-10-13] MEDS: hydrALAZINE HCl 20 MG/ML VIAL 10 MG IVPUSH (21:06)
--- NOTE | 2023-10-13 21:10 | PC.NURSE ---
pt medicated per mar for BP. nad. resting comfortably. ambulatory with steady gait to bathroom.
--- NOTE | 2023-10-13 23:15 | PC.NURSE ---
rolled ham lacer at bedside now to draw ptt heparin lab.
--- NOTE | 2023-10-13 23:15 | PC.NURSE ---
Dr. Masterson made aware of high bp. pt denies WILLSON/cp/sob/n/v/d.
[2023-10-13 23:40] LABS: PTT Heparin Drip 31.5 SEC (53-77.9)
[2023-10-13] MEDS: Heparin Sodium,Porcine 5,000 UNIT/ML VIAL 8600 UNIT IVPUSH (23:55)
--- NOTE | 2023-10-14 00:01 | PC.NURSE ---
heparin drip titrated per mar. pt denies cp/sob. pt d/c with [facility]. report given to [facility] debbie Holloway on M5. nad at time of d/c pt is pleasant speaking full clear sentences.
[2023-10-14 00:02] VITALS: BP 162/95; PULSE 63; RESP 16; TEMP 36.6; O2SAT 100
== END 2023-10-14 00:03 | disposition short-term general hospital (02) ==
PROVIDERS: Emergency Provider Emergency Medicine; PCP Internal Medicine
DX: I21.4 Non-ST elevation (NSTEMI) myocardial infarction (principal); F14.90 Cocaine use, unspecified, uncomplicated; R07.2 Precordial pain; R06.02 Shortness of breath; F17.210 Nicotine dependence, cigarettes, uncomplicated; Z79.82 Long term (current) use of aspirin; Z79.899 Other long term (current) drug therapy
CPT/HCPCS: 36415; 71045; 80053; 80307; 82550; 84484; 85025; 85610; 85730; 93005; 96374; 96375; 99285; J0360; J1644

== ENCOUNTER → 2023-10-13 09:42 | Outpatient (BNV) | payer OTHER, SELFPAY | PROVIDERS: Emergency Provider Emergency Medicine; PCP Internal Medicine; Visit Provider Internal Medicine Cardiovascular Disease | DX: R94.31 Abnormal electrocardiogram [ECG] [EKG] (principal) | CPT/HCPCS: 93010; 99223 ==

== ENCOUNTER → 2023-10-14 23:59 | Outpatient (BNV) | payer OTHER, SELFPAY | PROVIDERS: PCP Internal Medicine; Visit Provider Internal Medicine Cardiovascular Disease | DX: I21.4 Non-ST elevation (NSTEMI) myocardial infarction (principal) | CPT/HCPCS: 93458; 99152 ==